=== PATIENT | female | born 1970 | race African-American/Black ===

== ENCOUNTER 2016-05-23 08:46 | Day surgery (SDC) | payer OTHER ==
[2016-05-16 10:54] LABS: HEMATOCRIT 39.2 % (36.0-47.0); HEMOGLOBIN 12.8 g/dL (12.0-15.5); HGB HCT DIFFERENCE -0.8; MEAN CORPUSCULAR HEMOGLOBIN 26.5 pg (27.0-33.4); MEAN CORPUSCULAR HGB CONC 32.7 g/dL (32.0-36.0); MEAN CORPUSCULAR VOLUME 81 fl (80-97); RED BLOOD COUNT 4.83 10^6/uL (3.72-5.28); RED CELL DISTRIBUTION WIDTH 16.1 % (11.5-14.0); WHITE BLOOD COUNT 8.7 10^3/uL (4.0-10.5)
[2016-05-16 11:20] LABS: ANION GAP 13 (5-19); BLOOD UREA NITROGEN 13 mg/dL (7-20); CALCIUM 9.5 mg/dL (8.4-10.2); CARBON DIOXIDE 24 mmol/L (22-30); CHLORIDE 106 mmol/L (98-107); CREATININE RESULT 0.98 mg/dL (0.52-1.25); GLUCOSE 95 mg/dL (75-110); POTASSIUM 4.3 mmol/L (3.6-5.0); SODIUM 142.8 mmol/L (137-145)
[~2016-05-23 08:46] MED LIST: ACETAMINOPHEN 325 MG TABLET PO PRN; BUPIVACAINE HCL 0.25 % INJ/PF (2.5 MG/1 ML) 30 ML VIAL ONE; CEFAZOLIN SODIUM 1 GM in DEXTROSE 5%-WATER 50 ML IV PRN; LACTATED RINGERS 1000 ML IV PRN; LIDOCAINE 0.5% INJ-PF (5 MG/ML) 50 ML SDV SUBCUT PRN; RINGERS SOLUTION,LACTATED 1,000 ML IV PRN
[2016-05-23] MEDS ORDERED: ROCURONIUM BROMIDE INJ 50 MG/5 ML VIAL IV ONE (11:49)
[2016-05-23] MEDS ORDERED: LIDOCAINE 2% INJ-PF (20 MG/ML) 10 ML AMPUL ONE (11:49)
[2016-05-23] MEDS ORDERED: DEXAMETHASONE SOD PHOSPHATE INJ 4 MG/1 ML VIAL ONE (11:49)
[2016-05-23] MEDS ORDERED: KETOROLAC TROMETHAMINE 60 MG/2 ML SDV ONE (11:49)
[2016-05-23] MEDS ORDERED: ONDANSETRON HCL INJ/PF 4 MG/2 ML SDV ONE (11:49)
[2016-05-23] MEDS ORDERED: SUCCINYLCHOLINE CHLORIDE INJ 200 MG/10 ML VIAL ONE (11:49)
[2016-05-23] MEDS ORDERED: PROPOFOL INJ 200 MG/20 ML VIAL IV ONE (12:28)
[2016-05-23] MEDS ORDERED: FENTANYL CITRATE INJ/PF 250 MCG/5 ML AMPULE ONE (12:28)
[2016-05-23] MEDS ORDERED: MIDAZOLAM 2 MG/2 ML INJ ONE (12:28)
[2016-05-23] MEDS ORDERED: ACETAMINOPHEN 100 ML IV ONE (12:29)
[2016-05-23] MEDS ORDERED: MEPERIDINE HCL/PF INJ 25 MG/1 ML DISP.SYRIN IV PRN (13:53)
[2016-05-23] MEDS ORDERED: FENTANYL CITRATE INJ/PF 100 MCG/2 ML AMPUL IV PRN ×3 (13:53)
[2016-05-23] MEDS ORDERED: DIPHENHYDRAMINE HCL 50 MG/ML VIAL IV PRN (13:53)
[2016-05-23] MEDS ORDERED: OXYCODONE-ACETAMINOPHEN 5-325 MG TABLET PO PRN ×4 (13:53→15:43)
[2016-05-23] MEDS ORDERED: PROMETHAZINE HCL INJ 25 MG/1 ML VIAL IV PRN ×2 (13:53)
[2016-05-23] MEDS ORDERED: MORPHINE SULFATE 10 MG/ML INJ IV PRN ×2 (13:53→15:43)
[2016-05-23] MEDS ORDERED: BUPIVACAINE INJ/PF LIPOSOME/PF 266 MG/20 ML SDV ONE (14:52)
[2016-05-23] MEDS ORDERED: MORPHINE SULFATE 10 MG/ML INJ ONE (14:58)
[2016-05-23] MEDS ORDERED: ONDANSETRON HCL INJ/PF 4 MG/2 ML SDV IV PRN (15:43)
--- NOTE | 2016-05-23 15:43 | Operative Report ---
Operative Report DATE OF SURGERY: 05/23/16 PREOPERATIVE DIAGNOSIS: Large chronic incarcerated ventral wall hernia. POSTOPERATIVE DIAGNOSIS: Same with intra-abdominal adhesions OPERATION: 1. Laparoscopic lysis of adhesions. 2.laparoscopic reduction of incarcerated large umbilical hernia. 3 primary closure of abdominal wall hernia with multiple #1 PDS sutures. 4. Intra-abdominal placement of parietex 15 cm mesh SURGEON: FABIOLA TELLO LATHE MACHINIST: XOCHILT HANKINS ANESTHESIA: GA TISSUE REMOVED OR ALTERED: Portions of hernia sac COMPLICATIONS: None ESTIMATED BLOOD LOSS: scant INTRAOPERATIVE FINDINGS: See below PROCEDURE: The patient was seen in the preoperative holding area where she was then taken to the main operating room where general anesthesia was induced. The arms were abducted, and a Gastelum catheter was inserted. Abdomen was exposed, prepped and draped sterile fashion. Surgical plan, surgical timeout were conducted. On exam significant for large incarcerated ventral wall hernia, midline, above the umbilicus. Stab was made in the left upper quadrant Veress needle was inserted the peritoneal cavity. The peritoneum was established, very's needle was removed, the 5 mm port was inserted and a 5 mm flexible scope was inserted. Under direct visualization 2 additional ports were placed, both 5 mm, one in the left lower quadrant one in the right midfield. Findings are significant for a large portion of the omentum with portion of the mid transverse colon car serrated into the fascial defect. Same mushroomlike hernia with a moderately small stalk but a much larger extra peritoneal active with incarcerated contents. A combination of blunt, electrocautery, and ligature dissection, the peritoneal lining was incised around the circumference of this chronic 24-year-old hernia. Using a combination of blunt, and counterpressure dissection, we worked methodically to completely reduce the incarcerated hernia. Once this was accomplished we were able to debride some of the hernia sac which was disposed of. We measured the fascial defect was approximately 4 cm in maximum diameter. We elected to close the fascial defect transversely with multiple [id number] # 1 PDS sutures and this was affected using the disposable suture passer. At the conclusion of the closure, we felt we had good opposition of the fascia. Photos were taken. We now brought onto the field a non- 15 cm diameter medium weight polypropylene mesh by [employer]. It was secured with sutures at the 12, 3:00, 6 , and non-o'clock positions. The mesh was rolled after moistening and brought to accident secured the mesh firmly to the anterior abdominal wall. The anterior abdominal wall through the right mid quadrant port site incision. Mesh was unrolled then using the suture tacker brought up to the anterior abdominal wall at the 12, 3, 6, and 9:00 positions. We then came back around with 2 circumferential rows of coviden staple tackers and secured the mesh to the anterior abdominal wall. This was an intraperitoneal placement of mesh. Closing photographs were taken. Check for bleeding and visceral injury and there was none. We felt the operation was complete. All ports removed, and pneumoperitoneum evacuated. Port wounds closed with 3-0 Vicryl and all incisions closed with benzoin and Steri-Strips. Bulky bolster dressing applied to the anterior abdominal wall over the hernia site to reduce the redundant skin. Abdominal binder applied. Patient tolerated procedure well, extubated and taken recovery in stable condition. The physician call center assistant, Ms. Hankins, provided assistance during this case by: Assisting and port insertion, retracting tissue, instillation of local anesthesia and closure of skin incisions.
--- NOTE | 2016-05-23 15:46 | PDOC DISCHARGE SUMMARY ---
Discharge Summary (SDC) - Discharge Final Diagnosis: Large ventral wall hernia Date of Surgery: 05/23/16 Discharge Date: 05/23/16 Condition: Good Treatment or Instructions: [facility] [address], [place] [address] Discharge Instructions: Laparoscopic Surgery 1. General Information: a. DO NOT DRIVE a car or operate dangerous machinery for 3-4 days or while taking narcotic pain pills. b. DO NOT consume alcohol, tranquilizers, sleeping medications or any non- prescribed medications for 24 hours unless approved by your doctor or as long as taking narcotic prescription medications. c. DO NOT make important decisions or sign any important papers for the first 24 hours after surgery. d. When discharged home the same day of surgery have a responsible person with you for the first night. 2. Activity Restrictions: 4 weeks. a. NO heavy lifting, straining abdominal muscles, bending over a lot, yard work, house work, or sports for [address] for 3-4 days or while taking percocet . c. It is fine to go for walks, up and down steps, ride in a car. d. Elevate your head when sleeping/resting. 3. Treatment: a. You may shower 24 hours after surgery, no baths or swimming for 2 weeks. Remove band-aids or dressings before shower but leave paper strips (steri-strips ) on the skin to fall off on their own. If still on at postoperative visit they will be removed then. b. Drainage of fluid or blood is not unusual from an incision. If occurs, you can clean with peroxide and cotton ball daily and cover with dry gauze until the wound seals. c. If a lot of bleeding occurs, you can hold pressure with a gauze or cloth over the site for 10 minutes and it will usually stop. If bleeding continues you will need to call for possible evaluation in office or emergency room. 4. Medications: a. percocet may be taken for pain as needed, one or two tablets every 4-6 hours. Stop the narcotic when able since you cannot take it and drive, and they cause constipation. You may switch to plain Tylenol, Advil or Aleve as you transition from the narcotic. Many adults find good pain relief with Advil 600- 800 mg three times a day with meals. This can cause indigestion, ulcers, and kidney problems with long-term use. b. You should resume all normal medications unless a change is specified by your doctors. c. Begin with clear liquids and may progress to your normal diet if not nauseated. No high fat, high protein foods the day of surgery. Normal diet 6. The following may occur after laparoscopic surgery: a. Shoulder or upper back ache from retained gas that should resolve in 1-2 days b. Soreness and bruising at incision sites will resolve with time. c. Scrotal swelling (labia in women) and bruising is often seen after hernia surgery. d. Sore throat e. Fatigue may last days to weeks. f. Difficulty urinating may occur and may need to come into emergency room for urinary catheter placement. 7. Notify Physician If: a. Worsening or pain not improved with pain medication b. Persistent nausea and vomiting c. Fever above 101 d. Persistent bleeding or swelling at operative site e. Unable to urinate and uncomfortable bladder 6-8 hours after surgery 8..Follow Up Care: a. Schedule a follow up appointment with your doctor for 2 weeks. In the event of any postoperative problems or questions or you may call the office during business hours or the On-Call physician evenings and weekends at [facility]. [facility] I understand the instructions for my postoperative care as described above and a copy has been given to me. Patient/Significant Other Witness Date Discharge Diet: As Tolerated Discharge Activity: Activity As Tolerated Home Care Assistance: None Needed Report the Following to Your Physician Immediately: Shortness of Breath, Increase in Pain, Fever over 101 Degrees
[2016-05-23] MEDS: FENTANYL CITRATE INJ/PF 100 MCG/2 ML AMPUL ONE ×3 (16:26→16:32)
--- NOTE | 2016-05-23 17:03 | PDOC CONSULTATION ---
Consultation Consult Date: 05/23/16 Attending physician:: FABIOLA ROBERT Consult reason:: Increased ventricular ectopy History of Present Illness Admission Date/PCP: FABIOLA ANGELES MD Patient complains of: Patient noted to have increased ventricular ectopy on monitoring. History of Present Illness: JULIO SRINIVASAN is a 45 year old female, patient was seen in the PACU unit. She was noted to have increased ventricular ectopy in the postop monitoring. The anesthesiologist called me and requested that I see the patient. He also mentioned that before surgery patient was also noted to have increased ventricular ectopy. On questioning patient denied any chest pain, shortness of breath, palpitations, syncope, near syncope. She denied ever having had heart problems, strokes or mini strokes. Patient also denied having diabetes, hypertension or any other significant cardiac risk factors. Patient denied any family history of premature coronary artery disease or sudden cardiac in immediate family members. Past Medical History Cardiac Medical History: Denies: Coronary Artery Disease, Myocardial Infarction, Hypertension Pulmonary Medical History: Denies: Asthma, Bronchitis, Chronic Obstructive Pulmonary Disease (COPD), Pneumonia Neurological Medical History: Denies: Seizures Musculoskeltal Medical History: Denies: Arthritis Hematology: Denies: Anemia Past Surgical History Past Surgical History: Reports: Other - Status post ventral hernia repair just today. Social History Information Source: Patient Smoking Status: Former Smoker Family History Family History: Reviewed & Not Pertinent Parental Family History Reviewed: Yes Children Family History Reviewed: Yes Sibling(s) Family History Reviewed.: Yes - Negative for premature coronary artery disease or sudden cardiac in the family amongst first degree relatives. Medication/Allergy Home Medications: Oxycodone HCl/Acetaminophen [Percocet 5-325 mg Tablet] 1 tab PO ASDIR PRN #25 tab 05/23/16 Allergies/Adverse Reactions: No Known Allergies Allergy (Verified 05/16/16 08:49) Review of Systems Review of Systems: Please see history of present illness and past medical history as wall. Constitutional: No fever or chills reported. Head : No recent chronic headaches, recent head injury. Eyes: No recent eye pain, diplopia, redness, discharge, acute visual changes. Ears: No recent chronic ear pain, acute hearing loss, ear discharge. Oral cavity: No recent ulcerations, bleeding, oral cavity discomfort. Neck: No recent acute neck pain reported. Hematologic: No recent easy bruising or bleeding or hematologic malignancy reported. Lymphatic: No recent lymphatic malignancy, chronic lymphadenopathy reported yet Cardiovascular system review: See history of present illness. Respiratory system review: No recent chronic cough, hemoptysis, blood clots in the lungs reported. Mild Shortness of breath on exertion Gastrointestinal system review: Recent abdominal pain, but no hematemesis, melena, recent change in bowel habits. Genitourinary system review: No recent acute or chronic hematuria, flank pain, UTI etc. reported. Skin system review: Negative for any recent abnormal bruising, no rash, no pruritus reported. Neurologic: No prior history of strokes, mini strokes, seizure disorder. Psychologic: No history of major psychosis or depression reported. Musculoskeletal: Minor aches and pains reported. No acute joint swelling reported. Endocrine: No recent polyuria, polydipsia, recent heat or cold intolerance. Physical Exam Vital Signs: Temp Pulse Resp BP Pulse Ox 98.2 F 76 18 125/65 100 05/23/16 15:37 05/23/16 16:22 05/23/16 16:22 05/23/16 16:22 05/23/16 16:22 Intake & Output 05/22/16 05/23/16 05/24/16 06:59 06:59 06:59 Intake Total 1550 Output Total 370 Balance 1180 Weight 90.72 kg Exam: GENERAL: well-nourished and in no acute distress. Alert and oriented x3 HEAD: Atraumatic, normocephalic. EYES: Pupils equal round and reactive to light, extraocular movements intact, sclera anicteric, conjunctiva are normal. ENT: TMs normal, nares patent, oropharynx clear without exudates. Moist mucous membranes. No oral ulcerations or bleeding gums noted NECK: supple without lymphadenopathy. Trachea is central. No cervical or axillary lymphadenopathy noted. Carotids are 2+, JVD WNL LUNGS: Respiration seems nonlabored, no significant accessory muscle action noted. Breath sounds clear to auscultation bilaterally and equal. No wheezes rales or rhonchi. No significant dullness noted on percussion. CHEST: Palpation of the chest wall shows no significant chest wall tenderness or abnormalities. HEART: [place] LOCKSTITCH SHOULDER JOINER, No PSH, 1/6 SANTOS aortic area, 1/6 chavez systolic murmur mitral area, no rubs, no gallops. ABDOMEN: Soft, mild tenderness appreciated at surgical site, normoactive bowel sounds. No guarding, no rebound. No rigidity noted . No masses appreciated. EXTREMITIES: Pedal pulses are 1-2+, no calf tenderness noted. No clubbing or cyanosis.trace to 1+ pedal edema noted NEUROLOGICAL: Focused neurological exam showed no significant neurologic deficit. Normal speech, no focal weakness appreciated. PSYCH: Normal mood, normal affect. Judgment and insight within normal limits. SKIN: No significant ecchymosis, rash, ulcerations or signs of pruritus noted. MUSCULOSKELETAL EXAM: No significant joint swelling noted. Results Laboratory Results: 05/16/16 09:23 05/16/16 09:23 EKG Comments: Sinus rhythm, increased ventricular ectopy but no acute ST-T wave changes. Impressions: Chest X-Ray 05/23/16 08:49 IMPRESSION: NO ACUTE RADIOGRAPHIC FINDING IN THE CHEST. Assessment & Plan - Diagnosis (1) Cardiac dysrhythmia, unspecified Qualifiers: Premature depolarization type: ventricular Is this a current diagnosis for this admission?: YesPlan: Patient noted to have frequent ventricular ectopy but patient asymptomatic and without any prior cardiac history. At this point feel that patient is safe for discharge with follow-up either tomorrow or day after in my office. Would recommend patient have a echocardiogram, a event or Holter monitor and a stress test. This was explained to the patient. She is agreeable. We will consider beta simone therapy if this persist. At this point feel that increased when to call or ectopy could be effect of anesthesia on the heart and is likely to improve. (2) status post abdominal hernia surgery Is this a current diagnosis for this admission?: YesPlan: Patient doing reasonably well postop without any immediate complications being noted. - Time Time Spent: 30 to 50 Minutes - CODE STATUS was discussed, patient remains full code. Surrogate decision-maker ration's parents. Multiple medical problems were addressed.More than 50% of the time spent coordinating care, discussing management plans with involved caregivers. Management plans discussed with involved personnels. Medical decision making was of moderate complexity.
[2016-05-23 18:36] VITALS: BP 129/81
--- NOTE | 2016-05-24 09:43 | EKG REPORT ---
SEVERITY:- ABNORMAL ECG - SINUS RHYTHM VENTRICULAR TRIGEMINY BORDERLINE RIGHT AXIS DEVIATION : Confirmed by: Leda Jenkins MD 24-May-2016 09:41:19
== END 2016-05-23 18:29 | disposition home or self-care (01) ==
LOC: OROUT 08:46
PROVIDERS: ATTEND Surgery
PROC: 0WUF0JZ Supplement Abdominal Wall with Synthetic Substitute, Open Approach (ICD-10-PCS; principal; 2016-05-23 11:00)
DX: K43.6 Other and unspecified ventral hernia with obstruction, without gangrene (principal); K66.0 Peritoneal adhesions (postprocedural) (postinfection); I49.3 Ventricular premature depolarization; Z87.891 Personal history of nicotine dependence
CPT/HCPCS: 36415; 85027; 81025; 80048; 71010; 93005; 93010; 49561; 49568; C1781; J2250; J0690; J3490 ×2; J1100; J1885; J3010 ×2; J2270; J0330; J2405; J2704; J0131; C9290; 752

== ENCOUNTER → 2016-06-22 | Outpatient (CLI) | payer OTHER | LOC: SP 15:44 | PROVIDERS: ATTEND Surgery | DX: I82.409 Acute embolism and thrombosis of unspecified deep veins of unspecified lower extremity (principal) | CPT/HCPCS: 93971 ==

== ENCOUNTER 2017-05-28 07:32 | Emergency (ER) | payer OTHER ==
--- NOTE | 2017-05-28 08:26 | ER Document Report ---
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 Hx of this in the past once. No fever. No hx gout. Associated Symptoms: None Exacerbated by: Movement Relieved by: Denies Similar symptoms previously: Yes Recently seen / treated by doctor: No - ROS ROS below otherwise negative: Yes Systems Reviewed and Negative: Yes All other systems reviewed and negative - REPRODUCTIVE Reproductive: DENIES: : - MUSCULOSKELETAL Musculoskeletal: REPORTS: Extremity pain - left knee Past Medical History - General Information source: Patient - Social History Smoking Status: Never Smoker Chew tobacco use (# tins/day): No Frequency of alcohol use: None Drug Abuse: None Lives with: Family Family History: Reviewed & Not Pertinent Patient has suicidal ideation: No Patient has homicidal ideation: No Renal/ Medical History: Denies: Hx Peritoneal Dialysis Surgical Hx: Negative Past Surgical History: Reports: Other - Status post ventral hernia repair just today. - Immunizations Hx Diphtheria, Pertussis, Tetanus Vaccination: Yes Vertical Provider Document - CONSTITUTIONAL Agree With Documented VS: Yes Exam Limitations: No Limitations General Appearance: No Apparent Distress - INFECTION CONTROL TRAVEL OUTSIDE OF THE [place] IN LAST 30 DAYS: No - HEENT HEENT: Normocephalic - NECK Neck: Supple - RESPIRATORY O2 Sat by Pulse Oximetry: 99 - MUSCULOSKELETAL/EXTREMETIES Musculoskeletal/Extremeties: Tender, Edema - warm left knee, suspect effusion, not red Notes: increased pain with flexion - NEURO Level of Consciousness: Awake, Alert Motor/Sensory: No Motor Deficit, No Sensory Deficit Notes: 2+ left DP - DERM Integumentary: Warm, Dry Course - Re-evaluation Re-evalutation: 05/28/17 xray mild arthritis per rad. Pt does not want crutches offered. 05/29/17 21:45 - Vital Signs Vital signs: Temp Pulse Resp BP Pulse Ox 98.1 F 92 18 146/97 H 99 05/28/17 07:37 05/28/17 07:37 05/28/17 07:37 05/28/17 07:37 05/28/17 07:37 Discharge - Discharge Clinical Impression: left knee joint acute inflammation Condition: Good Disposition: HOME, SELF-CARE Instructions: Anti-Inflammatory Medication ([facility]), Elevation & Warmth ([facility]), Oral Narcotic Medication ([facility]) Additional Instructions: elevate indoncin for the inflammtion hydrocodone for the pain today to er if increased swelling, heat, red, fever Prescriptions: Hydrocodone Bit/Acetaminophen [Hydrocodon-Acetaminophen 5-325] 1 each PO Q4HP PRN #10 tablet PRN Reason: Indomethacin [Indocin 50 Mg Capsule] 50 mg PO TID #20 capsule Forms: Return to Work Referrals: LELO TAVERAS MD [ACTIVE STAFF] - Follow up as needed
[2017-05-28] MEDS ORDERED: ONDANSETRON 4 MG TAB.RAPDIS PO ONE (09:14)
[2017-05-28] MEDS ORDERED: INDOMETHACIN 50 MG CAPSULE PO ONE (09:14)
--- NOTE | 2017-05-28 09:32 | RADIOLOGY REPORT (SQ) ---
EXAM DESCRIPTION: KNEE LEFT 4 VIEW COMPLETED DATE/TIME: 05/28/2017 9:11 am REASON FOR STUDY: pain and swelling left knee COMPARISON: None. NUMBER OF VIEWS: Four views. TECHNIQUE: AP, lateral, and both oblique radiographic images acquired of the left knee. LIMITATIONS: None. FINDINGS: MINERALIZATION: Normal. BONES: Minimal peaking of intercondylar eminence. JOINT: No effusion. SOFT TISSUES: No soft tissue swelling. No radio-opaque foreign body. OTHER: No other significant finding. IMPRESSION: Minimal degenerative arthritis left knee. TECHNICAL DOCUMENTATION: JOB ID: [id number] [id number] 2010 [employer]- All Rights Reserved
[2017-05-28 09:37] VITALS: BP 142/90
== END 2017-05-28 09:37 | disposition home or self-care (01) ==
LOC: ER 07:32
DX: M17.12 Unilateral primary osteoarthritis, left knee (principal); M25.562 Pain in left knee
CPT/HCPCS: 99283; 73562; S0119; J3490

== ENCOUNTER 2017-10-25 13:32 | Emergency (ER) | payer OTHER ==
[2017-10-25 13:38] VITALS: BP 154/81
--- NOTE | 2017-10-25 13:50 | ER Document Report ---
HPI - HPI Patient complains to provider of: planter left foot pain Onset: This morning Pain Level: 5 Context: 47 yo female c/o left foot pain when she stepped out of bed this morning. Hurts to wal. No injury. Has been tested for gout in past for outher jont pain and the uric acid is negative. Some ankle swelling. No fever. Associated Symptoms: None Exacerbated by: Walking Relieved by: Denies Similar symptoms previously: Yes - in other joints Recently seen / treated by doctor: No - ROS ROS below otherwise negative: Yes Systems Reviewed and Negative: Yes All other systems reviewed and negative - REPRODUCTIVE Reproductive: DENIES: : - MUSCULOSKELETAL Musculoskeletal: REPORTS: Extremity pain Past Medical History - General Information source: Patient - Social History Smoking Status: Current Every Day Smoker Frequency of alcohol use: None Drug Abuse: None Lives with: Family Family History: Reviewed & Not Pertinent Patient has suicidal ideation: No Patient has homicidal ideation: No Renal/ Medical History: Denies: Hx Peritoneal Dialysis Surgical Hx: Negative Past Surgical History: Reports: Other - Status post ventral hernia repair just today. - Immunizations Hx Diphtheria, Pertussis, Tetanus Vaccination: Yes Vertical Provider Document - CONSTITUTIONAL Agree With Documented VS: Yes Exam Limitations: No Limitations General Appearance: No Apparent Distress - INFECTION CONTROL TRAVEL OUTSIDE OF THE [place] IN LAST 30 DAYS: No - HEENT HEENT: Normocephalic - NECK Neck: Supple - BACK Back: CVA Tenderness-Left - plantar left foot at the fascia adjacent to heel - MUSCULOSKELETAL/EXTREMETIES Musculoskeletal/Extremeties: MAEW, FROM, Tender - NEURO Motor/Sensory: No Motor Deficit, No Sensory Deficit - DERM Integumentary: No Rash Course - Re-evaluation Re-evalutation: 10/25/17 15:00 Radiologist read soft tissue swelling without evidence of fracture, small calcaneal spurs, mild degenerative changes involving the first MTP joint. By physical exam she has plantar fasciitis with ankle swelling. She has been tested for uric acid due to joint pain in the past. This pain is tender along the plantar foot heel and not with joint movement. I will treat for inflammation and use Costa wrap and crutches for comfort. Will recommend that she follow-up with a industrial automation specialist. - Vital Signs Vital signs: Temp Pulse Resp BP Pulse Ox 98.1 F 110 H 16 154/81 H 98 10/25/17 13:37 10/25/17 13:37 10/25/17 13:37 10/25/17 13:37 10/25/17 13:37 Discharge - Discharge Clinical Impression: Pain in left ankle and joints of left foot Condition: Good Disposition: HOME, SELF-CARE Instructions: Costa Wrap ([facility]), Arthritis ([facility]), Use of Crutches ([facility]), Ibuprofen (General) ([facility]), Plantar Fasciitis or Heel Spur ([facility]) Additional Instructions: cool compress See the industrial automation specialist Ashley on a regular basis with food Prescription for comfort Crutches for several days Prescriptions: Ibuprofen [Motrin 800 mg Tablet] 800 mg PO Q8HP PRN #30 tablet PRN Reason: Forms: Return to Work Referrals: MARTINA FERRARA DPM [ACTIVE STAFF] - Follow up as needed
[2017-10-25] MEDS ORDERED: ACETAMINOPHEN 325 MG TABLET PO ONE (13:56)
[2017-10-25] MEDS ORDERED: IBUPROFEN 800 MG TABLET PO ONE (13:56)
--- NOTE | 2017-10-25 14:46 | RADIOLOGY REPORT (SQ) ---
EXAM DESCRIPTION: FOOT LEFT COMPLETE; ANKLE LEFT COMPLETE COMPLETED DATE/TIME: 10/25/2017 2:22 pm REASON FOR STUDY: pain COMPARISON: 10/22/2015 NUMBER OF VIEWS: Six views. TECHNIQUE: AP, lateral and oblique radiographic images acquired of the left foot with AP, lateral o blique views of the left ankle. LIMITATIONS: None. FINDINGS: MINERALIZATION: Normal. BONES: No acute fracture or dislocation. No worrisome bone lesions. Smile calcaneal spurs at the in sertion of the Achilles and plantar aponeurosis. Calcification in the Achilles tendon. JOINTS: No effusions. Mild hallux valgus with mild degenerative changes involving 1st metatarsophala ngeal joint. SOFT TISSUES: Relatively diffuse soft tissue swelling. OTHER: No other significant finding. IMPRESSION: 1. Soft tissue swelling without evidence fracture. 2. Small calcaneal spurs. 3. Mild degenerative changes involving 1st metatarsophalangeal joint. TECHNICAL DOCUMENTATION: JOB ID: [id number] [employer]- All Rights Reserved Reading location - IP/workstation name: [email or web address]
--- NOTE | 2017-10-25 14:46 | RADIOLOGY REPORT (SQ) ---
EXAM DESCRIPTION: FOOT LEFT COMPLETE; ANKLE LEFT COMPLETE COMPLETED DATE/TIME: 10/25/2017 2:22 pm REASON FOR STUDY: pain COMPARISON: 10/22/2015 NUMBER OF VIEWS: Six views. TECHNIQUE: AP, lateral and oblique radiographic images acquired of the left foot with AP, lateral o blique views of the left ankle. LIMITATIONS: None. FINDINGS: MINERALIZATION: Normal. BONES: No acute fracture or dislocation. No worrisome bone lesions. Smile calcaneal spurs at the in sertion of the Achilles and plantar aponeurosis. Calcification in the Achilles tendon. JOINTS: No effusions. Mild hallux valgus with mild degenerative changes involving 1st metatarsophala ngeal joint. SOFT TISSUES: Relatively diffuse soft tissue swelling. OTHER: No other significant finding. IMPRESSION: 1. Soft tissue swelling without evidence fracture. 2. Small calcaneal spurs. 3. Mild degenerative changes involving 1st metatarsophalangeal joint. TECHNICAL DOCUMENTATION: JOB ID: [id number] 1976 [employer]- All Rights Reserved Reading location - IP/workstation name: [email or web address]
== END 2017-10-25 15:11 | disposition home or self-care (01) ==
LOC: ER 13:32
DX: M25.572 Pain in left ankle and joints of left foot (principal); M79.672 Pain in left foot; F17.200 Nicotine dependence, unspecified, uncomplicated
CPT/HCPCS: 99283

== ENCOUNTER 2020-04-04 06:32 | Emergency (ER) | payer OTHER ==
--- NOTE | 2020-04-04 07:28 | EKG REPORT ---
SEVERITY:- ABNORMAL ECG - SINUS RHYTHM MULTIPLE VENTRICULAR PREMATURE COMPLEXES PROBABLE LEFT ATRIAL ABNORMALITY LOW VOLTAGE IN FRONTAL LEADS BORDERLINE T ABNORMALITIES, ANT-LAT LEADS : Confirmed by: Amrit Haley MD 04-Apr-2020 07:28:19
--- NOTE | 2020-04-04 08:57 | ER Document Report ---
ED General - General Chief Complaint: Cough Stated Complaint: WHEEZING Time Seen by Provider: 04/04/20 08:13 [facility] Care [facility]: [facility] [Provider Group] - Follow up in 3-5 days (for primary care follow up) TRAVEL OUTSIDE OF THE [place] IN LAST 30 DAYS: No - HPI Notes: 49-year-old female to the emergency department with complaints of dry cough, wheezing, shortness of breath, and difficulty laying flat since Saturday (two days ago). She states that she has been trying to cough up sputum but has not been successful. She states she is having to sleep sitting up on multiple pillows. She states when she lays flat she feels very short of breath and feels like she is wheezing. She states the other night she woke up in the middle of the night acutely short of breath feeling like she wanted to open a window. She denies any fevers or chills. She denies body aches, sore throat, loss of taste or smell, nausea, vomiting, diarrhea, leg swelling, recent travel. She states that she has not been around anybody is sick. 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 She has not recently been tested for COVID-19. The patient was evaluated during the global COVID 19 pandemic, and that diagnosis was suspected/considered upon their initial presentation. Their evaluation, treatment, and testing was consistent with current guidelines for patients who present with complaints or symptoms that may be related to COVID-19. She has no past medical history for asthma, congestive heart failure, hypertension, PE. - Related Data Allergies/Adverse Reactions: No Known Allergies Allergy (Verified 10/25/17 13:33) Past Medical History - General Information source: Patient - Social History Smoking Status: Never Smoker Frequency of alcohol use: None Drug Abuse: None Family History: Reviewed & Not Pertinent - Past Medical History Cardiac Medical History: Denies: Hx Coronary Artery Disease, Hx Heart Attack, Hx Hypertension Pulmonary Medical History: Denies: Hx Asthma, Hx Bronchitis, Hx COPD, Hx Pneumonia Neurological Medical History: Denies: Hx Cerebrovascular Accident, Hx Seizures Renal/ Medical History: Denies: Hx Peritoneal Dialysis Musculoskeletal Medical History: Denies Hx Arthritis Past Surgical History: Reports: Other - Status post ventral hernia repair just today. - Immunizations Hx Diphtheria, Pertussis, Tetanus Vaccination: Yes Review of Systems - Review of Systems Constitutional: denies: Chills, Fever EENT: No symptoms reported Cardiovascular: denies: Chest pain, Palpitations, Heart racing, Syncope, Dizziness, Lightheaded Respiratory: Cough, Short of breath, Wheezing Gastrointestinal: denies: Abdominal pain, Diarrhea, Nausea, Vomiting Genitourinary: denies: Burning, Dysuria, Frequency, Flank pain Female Genitourinary: No symptoms reported Musculoskeletal: No symptoms reported. denies: Muscle pain, Muscle stiffness, Neck pain Skin: No symptoms reported Hematologic/Lymphatic: No symptoms reported Neurological/Psychological: No symptoms reported -: Yes All other systems reviewed and negative Physical Exam - Vital signs Vitals: Temp Pulse Resp BP Pulse Ox 98.2 F 81 18 136/87 H 98 04/04/20 08:21 04/04/20 08:21 04/04/20 08:21 04/04/20 08:21 04/04/20 08:21 Interpretation: Normal - General General appearance: Appears well, Alert In distress: None - HEENT Head: Normocephalic, Atraumatic Eyes: Normal Pupils: PERRL Neck: Normal, Supple. No: Lymphadenopathy - Respiratory Respiratory status: No respiratory distress Chest status: Nontender Breath sounds: Normal, Nonproductive cough - slight non productive cough.. No: Rales, Rhonchi, Wheezing Chest palpation: Normal - Cardiovascular Rhythm: Regular Heart sounds: Normal auscultation Murmur: No Notes: No pitting edema to bilateral lower extremities - Abdominal Inspection: Normal Distension: No distension Bowel sounds: Normal Tenderness: Nontender Organomegaly: No organomegaly - Back Back: Normal, Nontender - Extremities General lower extremity: Normal inspection, Nontender, Normal color, Normal ROM, Normal temperature, Normal weight bearing. No: Ron's sign - Neurological Neuro grossly intact: Yes Cognition: Normal Orientation: AAOx4 [place] Coma Scale Eye Opening: Spontaneous [place] Coma Scale Verbal: Oriented Ger Coma Scale Motor: Obeys Commands [place] Coma Scale Total: 15 Speech: Normal Cranial nerves: Normal Cerebellar coordination: Normal Motor strength normal: LUE, RUE, LLE, RLE Additional motor exam normals: Equal clarification operator Sensory: Normal - Psychological Associated symptoms: Normal affect, Normal mood - Skin Skin Temperature: Warm Skin Moisture: Dry Skin Color: Normal Course - Vital Signs Vital signs: Temp Pulse Resp BP Pulse Ox 98.5 F 77 20 149/85 H 98 04/04/20 10:49 04/04/20 10:49 04/04/20 10:49 04/04/20 10:49 04/04/20 10:49 - Laboratory Result Diagrams: 04/04/20 08:56 04/04/20 08:56 Laboratory results interpreted by me: 04/04/20 04/04/20 04/04/20 08:56 08:56 08:56 RDW 15.1 H BUN 6 L NT-Pro-B Natriuret Pep 580 H - EKG Interpretation by Me Additional EKG results interpreted by me: 04/04/20 08:55 Rate: 77 Rhythm: Sinus Interpretation: No STEMI, multiple PVCs, T wave inversion in aVL and V2 which is unchanged from prior comparison in May 2016 Discharge - Discharge Clinical Impression: Cough, Wheezing Condition: Stable Disposition: HOME, SELF-CARE Instructions: COVID-19 Guidance for Persons Under Investigation Additional Instructions: Use albuterol inhaler as directed. Return if worsening symptoms such as worsening shortness of breath, chest pain, passing out, any other concerns. You have been tested for COVID-19. You must quarantine for the next week until you know results. Results are typically available in 3 to 5 days. We will call you with the results. As a person under investigation for COVID-19, [facility], division of public health advises you to adhere to the following guidance until your test results are reported to you. If your test result is positive, you will receive additional information from your [facility] ider and your local health department at that time. Remain at home until you are cleared by the healthcare provider public health authorities. Keep a log of visitors to your home and notify any visitors to your home of your isolation status. If you plan to move to a new address or leave the country, notify the local health department and your County. Call your doctor or seek care if you have an urgent medical need. Before seeking medical care, call ahead to get instructions from the provider before arriving at the medical office, clinic, or hospital. Notify them that you are being tested for the virus that causes COVID-19 so that arrangements can be made, as necessary, to prevent transmission to others in the healthcare setting. Next, notify the local health department and your County. If a medical emergency arises and you need to call 911, informed the first responders that you are being tested for the virus that causes COVID-19. Next, notified the local health department and your County. Prescriptions: Benzonatate [Tessalon Perles 100 mg Capsule] 100 mg PO Q8HP PRN #40 capsule PRN Reason: Albuterol Sulfate [Proair HFA Inhalation Aerosol 8.5 gm MDI] 2 puff IH Q4H PRN #1 mdi PRN Reason: Forms: Return to Work Referrals: [facility] [Provider Group] - Follow up in 3-5 days (for primary care follow up)
--- NOTE | 2020-04-04 09:13 | RADIOLOGY REPORT (SQ) ---
EXAM DESCRIPTION: CHEST SINGLE VIEW IMAGES COMPLETED DATE/TIME: 04/04/2020 8:59 am REASON FOR STUDY: SOB, wheezing, difficulty laying flat COMPARISON: 05/23/2016 EXAM PARAMETERS: NUMBER OF VIEWS: One view. TECHNIQUE: Single frontal radiographic view of the chest acquired. RADIATION DOSE: NA LIMITATIONS: None. FINDINGS: LUNGS AND PLEURA: No opacities, masses or pneumothorax. No pleural effusion. MEDIASTINUM AND HILAR STRUCTURES: No masses. Contour normal. HEART AND VASCULAR STRUCTURES: Heart normal in size. Normal vasculature. BONES: No acute findings. HARDWARE: None in the chest. OTHER: No other significant finding. IMPRESSION: NO ACUTE RADIOGRAPHIC FINDING IN THE CHEST. TECHNICAL DOCUMENTATION: JOB ID: [id number] 2010 [employer]- All Rights Reserved Reading location - IP/workstation name: [email or web address]
[2020-04-04 09:19] LABS: ABSOLUTE BASOPHILS # (AUTO) 0.1 10^3/uL (0.0-0.2); ABSOLUTE EOSINOPHILS # (AUTO) 0.5 10^3/uL (0.0-0.6); ABSOLUTE MONOCYTES (AUTO) 0.5 10^3/uL (0.1-1.4); ABSOLUTE NEUT (AUTO) 5.7 10^3/uL (1.7-8.2); BASOPHILS % (AUTO) 1.2 % (0-2); EOSINOPHILS % (AUTO) 5.8 % (0-6); HEMATOCRIT 40.3 % (36.0-47.0); HEMOGLOBIN 13.5 g/dL (12.0-15.5); LYMPHOCYTES % (AUTO) 22.7 % (13-45); MEAN CORPUSCULAR HEMOGLOBIN 28.3 pg (27.0-33.4); MEAN CORPUSCULAR HGB CONC 33.5 g/dL (32.0-36.0); MEAN CORPUSCULAR VOLUME 85 fl (80-97); MONOCYTES % (AUTO) 5.5 % (3-13); PLATELET COUNT 231 10^3/uL (150-450); RED BLOOD COUNT 4.77 10^6/uL (3.72-5.28); RED CELL DISTRIBUTION WIDTH 15.1 % (11.5-14.0); SEGMENTED NEUTROPHILS % (AUTO) 64.8 % (42-78); TOTAL CELLS COUNTED % (AUTO) 100 %; WHITE BLOOD COUNT 8.9 10^3/uL (4.0-10.5)
[2020-04-04 09:34] LABS: ALBUMIN 4.1 g/dL (3.5-5.0); ALKALINE PHOSPHATASE 69 U/L (38-126); ANION GAP 7 (5-19); ASPARTATE AMINO TRANSFERASE 25 U/L (14-36); BILIRUBIN,DIRECT 0.2 mg/dL (0.0-0.4); BILIRUBIN,TOTAL 0.4 mg/dL (0.2-1.3); BLOOD UREA NITROGEN 6 mg/dL (7-20); CALCIUM 9.5 mg/dL (8.4-10.2); CARBON DIOXIDE 29 mmol/L (22-30); CHLORIDE 103 mmol/L (98-107); GLUCOSE 101 mg/dL (75-110); POTASSIUM 4.1 mmol/L (3.6-5.0); TOTAL PROTEIN 7.2 g/dL (6.3-8.2)
[2020-04-04] MEDS ORDERED: ALBUTEROL SULFATE 0.083% NEB 2.5 MG/3 ML AMPUL NEB ONE (09:35)
[2020-04-04] MEDS ORDERED: DEXAMETHASONE CONC 1 MG/ML SOLN PO ONE (09:35)
[2020-04-04 09:46] LABS: NT PRO BNP 580 pg/mL (<125)
[2020-04-04 09:47] LABS: TROPONIN I < 0.012 ng/mL
[2020-04-04 10:50] VITALS: BP 149/85
== END 2020-04-04 10:53 | disposition home or self-care (01) ==
LOC: ER 06:32
DX: R05 Cough (principal); R06.2 Wheezing; R06.02 Shortness of breath; Z20.828 Contact with and (suspected) exposure to other viral communicable diseases
CPT/HCPCS: 93005; 94640; 99285; 36415; 83735; 85025; 87635; 80053; 84484; 85379; 83880; 71045; 93010; J7613; J8540; C9803

== ENCOUNTER 2020-04-14 05:38 | Emergency (ER) | payer OTHER ==
[2020-04-14] MEDS ORDERED: IPRATROPIUM/ALBUTEROL 0.5-2.5 MG/3 ML AMPUL NEB ONE (06:27)
[2020-04-14 06:49] LABS: ABSOLUTE BASOPHILS # (AUTO) 0.1 10^3/uL (0.0-0.2); ABSOLUTE LYMPHOCYTES (AUTO) 1.9 10^3/uL (0.5-4.7); ABSOLUTE MONOCYTES (AUTO) 0.7 10^3/uL (0.1-1.4); ABSOLUTE NEUT (AUTO) 5.6 10^3/uL (1.7-8.2); BASOPHILS % (AUTO) 0.9 % (0-2); EOSINOPHILS % (AUTO) 10.6 % (0-6); HEMATOCRIT 45.5 % (36.0-47.0); HEMOGLOBIN 15.3 g/dL (12.0-15.5); LYMPHOCYTES % (AUTO) 20.9 % (13-45); MEAN CORPUSCULAR HEMOGLOBIN 28.3 pg (27.0-33.4); MEAN CORPUSCULAR HGB CONC 33.6 g/dL (32.0-36.0); MEAN CORPUSCULAR VOLUME 84 fl (80-97); MONOCYTES % (AUTO) 7.6 % (3-13); PLATELET COUNT 276 10^3/uL (150-450); RED BLOOD COUNT 5.41 10^6/uL (3.72-5.28); RED CELL DISTRIBUTION WIDTH 15.1 % (11.5-14.0); TOTAL CELLS COUNTED % (AUTO) 100 %; WHITE BLOOD COUNT 9.3 10^3/uL (4.0-10.5)
[2020-04-14 07:07] LABS: ALBUMIN 4.5 g/dL (3.5-5.0); ANION GAP 6 (5-19); ASPARTATE AMINO TRANSFERASE 28 U/L (14-36); BLOOD UREA NITROGEN 7 mg/dL (7-20); CALCIUM 9.9 mg/dL (8.4-10.2); CARBON DIOXIDE 27 mmol/L (22-30); CHLORIDE 104 mmol/L (98-107); GLUCOSE 119 mg/dL (75-110); NT PRO BNP 48 pg/mL (<125); TROPONIN I < 0.012 ng/mL
[2020-04-14 07:08] LABS: ALKALINE PHOSPHATASE 76 U/L (38-126); BILIRUBIN,DIRECT 0.1 mg/dL (0.0-0.4); BILIRUBIN,TOTAL 0.7 mg/dL (0.2-1.3); TOTAL PROTEIN 8.2 g/dL (6.3-8.2)
--- NOTE | 2020-04-14 08:21 | RADIOLOGY REPORT (SQ) ---
EXAM DESCRIPTION: CTA CHEST IMAGES COMPLETED DATE/TIME: 04/14/2020 6:56 am REASON FOR STUDY: sob. CREAT 0.79 04/04/20 COMPARISON: 07/31/2019 TECHNIQUE: CT scan of the chest performed using helical scanning technique with dynamic intravenous contrast injection. Images reviewed with lung, soft tissue and bone windows. Reconstructed coronal and sagittal MPR images reviewed. Additional 3 dimensional post-processing performed to develop Maximal Intensity Projection images (GA P). All images stored on PACS. All CT scanners at this facility use dose modulation, iterative reconstruction, and/or weight based d osing when appropriate to reduce radiation dose to as low as reasonably achievable (ALARA). [facility]: Dose Right [facility]: CareDose [facility]: Dose Right [facility]: Teradose 4D [facility]: NowPublic CONTRAST TYPE AND DOSE: contrast/concentration: Isovue 350.00 mmol/ml; Total Contrast Delivered: 75. 0 ml; Total Saline Delivered: 40.0 ml Contrast bolus optimized for the pulmonary arteries. Not diagnostic for the aorta. RENAL FUNCTION: Not provided on scanned paperwork. RADIATION DOSE: CT Rad equipment meets quality standard of care and radiation dose reduction techniq ues were employed. CTDIvol: 21.2 mGy. DLP: 731 mGy-cm. . LIMITATIONS: None. FINDINGS: LUNGS AND PLEURA: No masses, infiltrates, or pneumothorax. No pleural effusions or pleura l calcifications. AORTA AND GREAT VESSELS: No aneurysm. Contrast bolus not optimized for the aorta. HEART: No pericardial effusion. No significant coronary artery calcifications. PULMONARY ARTERIES: No emboli visualized in the main pulmonary arteries or the segmental branches. HILAR AND MEDIASTINAL STRUCTURES: No identified masses or abnormal nodes. HARDWARE: None in the chest. UPPER ABDOMEN: No significant findings. Limited exam. THYROID AND OTHER SOFT TISSUES: No masses. No adenopathy. BONES: No acute or significant finding. 3D MIPS: Confirm above findings. OTHER: No other significant finding. IMPRESSION: NORMAL CTA OF THE CHEST. NO PULMONARY EMBOLI. COMMENT: Quality ID # [id number]: Final reports with documentation of one or more dose reduction techniques (e.g., Automated exposure control, adjustment of the mA and/or kV according to patient size, use of iterative reconstruction technique) TECHNICAL DOCUMENTATION: JOB ID: [id number] 2010 [employer]- All Rights Reserved Reading location - IP/workstation name: [email or web address]
--- NOTE | 2020-04-14 08:36 | ER Document Report ---
ED General - General Chief Complaint: Shortness Of Breath Stated Complaint: COUGH Time Seen by Provider: 04/14/20 06:11 Mode of Arrival: Ambulatory Information source: Patient TRAVEL OUTSIDE OF THE [place] IN LAST 30 DAYS: No - HPI Notes: Patient presents complaint of shortness of breath. She states that she woke up this morning feeling short of breath. She had a similar visit several days ago. She states she has been noticing that the shortness of breath seems to be worse when she lies flat or exert herself. She is also been "wheezing". She states she has been trying the inhaler at home but has not had significant relief. She denies previous episodes of similar problems. She denies any history of lung disease. She denies being a current smoker. No history of heart disease. She denies any significant pain. The shortness of breath has been moderate. It is better now on arrival. No vomiting. No fevers chills or sweats. She recently had a negative Covid test and has had no known exposures to the Covid virus. - Related Data Allergies/Adverse Reactions: No Known Allergies Allergy (Verified 10/25/17 13:33) Home Medications: albuterol inhaler, tessalon perarls Past Medical History - General Information source: Patient - Social History Smoking Status: Former Smoker Frequency of alcohol use: None Drug Abuse: None Family History: Reviewed & Not Pertinent - Past Medical History Cardiac Medical History: Denies: Hx Coronary Artery Disease, Hx Heart Attack, Hx Hypertension Pulmonary Medical History: Denies: Hx Asthma, Hx Bronchitis, Hx COPD, Hx Pneumonia Neurological Medical History: Denies: Hx Cerebrovascular Accident, Hx Seizures Renal/ Medical History: Denies: Hx Peritoneal Dialysis Musculoskeletal Medical History: Denies Hx Arthritis Past Surgical History: Reports: Other - Status post ventral hernia repair just today. - Immunizations Hx Diphtheria, Pertussis, Tetanus Vaccination: Yes Review of Systems - Review of Systems Constitutional: denies: Chills, Fever Cardiovascular: denies: Chest pain, Palpitations Respiratory: Cough, Short of breath -: Yes All other systems reviewed and negative Physical Exam - Vital signs Vitals: Temp Pulse Resp BP Pulse Ox 98.0 F 77 16 149/85 H 97 04/14/20 05:43 04/14/20 05:43 04/14/20 05:43 04/14/20 05:43 04/14/20 05:43 Interpretation: Normal - General General appearance: Appears well, Alert - HEENT Head: Normocephalic, Atraumatic Eyes: Normal Pupils: PERRL - Respiratory Respiratory status: No respiratory distress Chest status: Nontender Breath sounds: Wheezing Chest palpation: Normal - Cardiovascular Rhythm: Regular Heart sounds: Normal auscultation Murmur: No - Abdominal Inspection: Normal Distension: No distension Bowel sounds: Normal Tenderness: Nontender Organomegaly: No organomegaly - Back Back: Normal, Nontender - Extremities General upper extremity: Normal inspection, Nontender, Normal color, Normal ROM, Normal temperature General lower extremity: Normal inspection, Nontender, Normal color, Normal ROM, Normal temperature, Normal weight bearing. No: Ron's sign - Neurological Neuro grossly intact: Yes Cognition: Normal Orientation: AAOx4 [place] Coma Scale Eye Opening: Spontaneous Ger Coma Scale Verbal: Oriented [place] Coma Scale Motor: Obeys Commands [place] Coma Scale Total: 15 Speech: Normal Motor strength normal: LUE, RUE, LLE, RLE Sensory: Normal - Psychological Associated symptoms: Normal affect, Normal mood - Skin Skin Temperature: Warm Skin Moisture: Dry Skin Color: Normal Course - Re-evaluation Re-evalutation: 04/14/20 08:33 Patient presents with shortness of breath and wheezing. She is wheezing here on exam. However she does not appear tachypneic or in distress. She has been t rying an inhaler at home with minimal relief. I do not see any evidence of failure. She does have ectopy on EKG. Therefore I have called and discussed the case with the terrazzo mechanic helper, Dr. Tinoco. He will follow up with the patient in the office. In addition I will treat the patient has an upper respiratory infection. 04/14/20 08:34 The patient was evaluated during a global COVID-19 pandemic and that diagnosis was suspected/considered upon their initial presentation. Their evaluation, treatment and testing was consistent with current guidelines for patients who present with complaints or symptoms and may be related to COVID-19. - Vital Signs Vital signs: Temp Pulse Resp BP Pulse Ox 98.0 F 77 16 149/85 H 94 04/14/20 05:43 04/14/20 05:43 04/14/20 05:43 04/14/20 05:43 04/14/20 06:17 - Laboratory Result Diagrams: 04/14/20 06:26 04/14/20 06:26 Laboratory results interpreted by me: 04/14/20 04/14/20 06:26 06:26 RBC 5.41 H RDW 15.1 H Eos % (Auto) 10.6 H Absolute Eos (auto) 1.0 H Glucose 119 H - Diagnostic Test Radiology reviewed: Image reviewed, Reports reviewed - EKG Interpretation by Me EKG shows normal: Sinus rhythm Rate: Normal - 99 Rhythm: NSR, PVC's [place]/QRS: No: Right axis deviation, Left axis deviation Discharge - Discharge Clinical Impression: URI (upper respiratory infection) Qualifiers: URI type: unspecified URI Qualified Code(s): J06.9 - Acute upper respiratory infection, unspecified Condition: Stable Disposition: HOME, SELF-CARE Instructions: Upper Respiratory Illness ([facility]) Additional Instructions: The terrazzo mechanic helper, Dr. Tinoco, will contact you and arrange for an evaluation in his office. Prescriptions: Sulfamethoxazole/Trimethoprim [Bactrim Ds Tablet] 1 each PO BID 7 Days #14 tablet Prednisone [Deltasone 20 mg Tablet] 3 tab PO DAILY 5 Days tablet Forms: Return to Work Referrals: OMAR TINOCO MD [ACTIVE STAFF] - Follow up in 3-5 days
[2020-04-14 08:52] VITALS: BP 125/80
--- NOTE | 2020-04-14 17:45 | EKG REPORT ---
SEVERITY:- ABNORMAL ECG - SINUS TACHYCARDIA MULTIPLE VENTRICULAR PREMATURE COMPLEXES BIATRIAL ABNORMALITIES RIGHT AXIS DEVIATION : Confirmed by: Dl Olmstead MD 14-Apr-2020 17:44:55
== END 2020-04-14 08:52 | disposition home or self-care (01) ==
LOC: ER 05:38
DX: J06.9 Acute upper respiratory infection, unspecified (principal); I49.3 Ventricular premature depolarization; R06.02 Shortness of breath; R06.2 Wheezing; Z87.891 Personal history of nicotine dependence; Z20.828 Contact with and (suspected) exposure to other viral communicable diseases
CPT/HCPCS: 36415; 71275; 80053; 83880; 84484; 85025; 93005; 93010; 94640; 99285

== ENCOUNTER 2020-04-26 17:28 | Emergency (ER) | payer OTHER ==
[2020-04-26] MEDS ORDERED: METHYLPREDNISOLONE INJ 125 MG/2 ML SDV IV ONE (18:14)
[2020-04-26] MEDS ORDERED: ALBUTEROL SULFATE 0.083% NEB 2.5 MG/3 ML AMPUL NEB ONE (18:14)
--- NOTE | 2020-04-26 18:16 | ER Document Report ---
ED Medical Screen (RME) - General Chief Complaint: Shortness Of Breath Stated Complaint: SHORT OF BREATH,COUGH Time Seen by Provider: 04/26/20 18:11 Primary Care Provider: ANDREA MCKEON NP [Primary Care Provider] - Follow up as needed Notes: HPI: 49-year-old female without an asthma history presenting for increased shortness of breath over the last 24 hours. Patient states she was seen here 2 weeks ago for wheezing and shortness of breath. Patient was given antibiotics which she did feel better on but states that she began having increasing shortness of breath again yesterday and worse today. No chest pain. PHYSICAL EXAMINATION: Audible expiratory wheezing is noted in all lung llamas. Patient is dyspneic with speaking. Pulse oximetry 96% on room air I have greeted and performed a rapid initial assessment of this patient. A comprehensive ED assessment and evaluation of the patient, analysis of test results and completion of medical decision making process will be conducted by an additional ED providers. Please note that clinical decision making for this patient was made during the 2019 pandemic of novel coronavirus which caused a significant strain on the healthcare system including at this particular facility. Criteria for admission discharge and level of care decisions as well as treatment decisions have necessarily changed TRAVEL OUTSIDE OF THE [place] IN LAST 30 DAYS: No - Related Data Allergies/Adverse Reactions: No Known Allergies Allergy (Verified 10/25/17 13:33) Past Medical History - Past Medical History Cardiac Medical History: Denies: Hx Coronary Artery Disease, Hx Heart Attack, Hx Hypertension Pulmonary Medical History: Denies: Hx Asthma, Hx Bronchitis, Hx COPD, Hx Pneumonia Neurological Medical History: Denies: Hx Cerebrovascular Accident, Hx Seizures Renal/ Medical History: Denies: Hx Peritoneal Dialysis Musculoskeltal Medical History: Denies Hx Arthritis Past Surgical History: Reports: Other - Status post ventral hernia repair just today. - Immunizations Hx Diphtheria, Pertussis, Tetanus Vaccination: Yes Physical Exam - Vital signs Vitals: Temp Pulse Resp BP Pulse Ox 98.3 F 99 20 144/79 H 96 04/26/20 17:46 04/26/20 17:46 04/26/20 17:46 04/26/20 17:46 04/26/20 17:46 Course - Vital Signs Vital signs: Temp Pulse Resp BP Pulse Ox 98.3 F 99 20 144/79 H 96 04/26/20 17:46 04/26/20 17:46 04/26/20 17:46 04/26/20 17:46 04/26/20 17:46 Doctor's Discharge - Discharge Referrals: ANDREA MCKEON, PRINCIPAL AUTOMATION ENGINEER [Primary Care Provider] - Follow up as needed
[2020-04-26 19:12] LABS: ABSOLUTE BASOPHILS # (AUTO) 0.1 10^3/uL (0.0-0.2); ABSOLUTE EOSINOPHILS # (AUTO) 1.3 10^3/uL (0.0-0.6); ABSOLUTE MONOCYTES (AUTO) 0.6 10^3/uL (0.1-1.4); ABSOLUTE NEUT (AUTO) 5.4 10^3/uL (1.7-8.2); BASOPHILS % (AUTO) 0.8 % (0-2); EOSINOPHILS % (AUTO) 12.5 % (0-6); HEMATOCRIT 42.8 % (36.0-47.0); HEMOGLOBIN 14.2 g/dL (12.0-15.5); LYMPHOCYTES % (AUTO) 28.6 % (13-45); MEAN CORPUSCULAR HEMOGLOBIN 28.1 pg (27.0-33.4); MEAN CORPUSCULAR HGB CONC 33.1 g/dL (32.0-36.0); MEAN CORPUSCULAR VOLUME 85 fl (80-97); MONOCYTES % (AUTO) 6.2 % (3-13); PLATELET COUNT 245 10^3/uL (150-450); RED BLOOD COUNT 5.04 10^6/uL (3.72-5.28); RED CELL DISTRIBUTION WIDTH 15.2 % (11.5-14.0); SEGMENTED NEUTROPHILS % (AUTO) 51.9 % (42-78); TOTAL CELLS COUNTED % (AUTO) 100 %; WHITE BLOOD COUNT 10.5 10^3/uL (4.0-10.5)
[2020-04-26 19:32] LABS: ALBUMIN 3.9 g/dL (3.5-5.0); ALKALINE PHOSPHATASE 60 U/L (38-126); ANION GAP 6 (5-19); ASPARTATE AMINO TRANSFERASE 23 U/L (14-36); BILIRUBIN,DIRECT 0.2 mg/dL (0.0-0.4); BILIRUBIN,TOTAL 0.4 mg/dL (0.2-1.3); BLOOD UREA NITROGEN 10 mg/dL (7-20); CALCIUM 9.7 mg/dL (8.4-10.2); CARBON DIOXIDE 29 mmol/L (22-30); CHLORIDE 106 mmol/L (98-107); GLUCOSE 133 mg/dL (75-110); TOTAL PROTEIN 6.9 g/dL (6.3-8.2)
--- NOTE | 2020-04-26 19:53 | RADIOLOGY REPORT (SQ) ---
EXAM DESCRIPTION: CHEST SINGLE VIEW IMAGES COMPLETED DATE/TIME: 04/26/2020 6:32 pm REASON FOR STUDY: sob COMPARISON: 04/04/2020 EXAM PARAMETERS: NUMBER OF VIEWS: One view. TECHNIQUE: Single frontal radiographic view of the chest acquired. RADIATION DOSE: NA LIMITATIONS: None. FINDINGS: LUNGS AND PLEURA: No opacities, masses or pneumothorax. No pleural effusion. MEDIASTINUM AND HILAR STRUCTURES: No masses. Contour normal. HEART AND VASCULAR STRUCTURES: Heart normal in size. Normal vasculature. BONES: No acute findings. HARDWARE: None in the chest. OTHER: No other significant finding. IMPRESSION: NO ACUTE RADIOGRAPHIC FINDING IN THE CHEST. TECHNICAL DOCUMENTATION: JOB ID: [id number] 2010 [employer]- All Rights Reserved Reading location - IP/workstation name: [email or web address]
[2020-04-26] MEDS ORDERED: MAGNESIUM SULFATE/D5W 1 GM/100 ML RTUPB IV ONE (20:45)
[2020-04-26] MEDS ORDERED: IBUPROFEN 400 MG TABLET PO ONE (20:46)
--- NOTE | 2020-04-26 22:40 | ER Document Report ---
ED General - General Chief Complaint: Shortness Of Breath Stated Complaint: SHORT OF BREATH,COUGH Time Seen by Provider: 04/26/20 18:11 Primary Care Provider: ANDREA MCKEON NP [Primary Care Provider] - Follow up as needed Notes: 49-year-old female with prior smoking history presents with approximately 3 weeks of shortness of breath, wheezing, cough sometimes productive of scant clear sputum. Patient states she was seen at the onset of her symptoms approximately 3 weeks ago and was started on albuterol which she has been taking frequently approximately every 4 hours. Also had course of antibiotics which she complied with and felt like symptoms were improved until it worsened again a few days ago. Patient is not sure if she has been on steroids. Patient was not previously diagnosed with COPD although has a smoking history. Patient says that symptoms feel better when she takes albuterol but that improvement does not last. Patient denies any fever, chest pain, cardiac history, hypertension, hyp erlipidemia, diabetes, lower extremity edema, myalgia, abdominal pain, nausea vomiting, diarrhea TRAVEL OUTSIDE OF THE [place] IN LAST 30 DAYS: No - Related Data Allergies/Adverse Reactions: No Known Allergies Allergy (Verified 10/25/17 13:33) Past Medical History - General Information source: Patient, [facility] Records - Social History Smoking Status: Former Smoker Family History: Reviewed & Not Pertinent - Past Medical History Cardiac Medical History: Denies: Hx Coronary Artery Disease, Hx Heart Attack, Hx Hypertension Pulmonary Medical History: Denies: Hx Asthma, Hx Bronchitis, Hx COPD, Hx Pneumonia Neurological Medical History: Denies: Hx Cerebrovascular Accident, Hx Seizures Renal/ Medical History: Denies: Hx Peritoneal Dialysis Musculoskeletal Medical History: Denies Hx Arthritis Past Surgical History: Reports: Other - Status post ventral hernia repair just today. - Immunizations Hx Diphtheria, Pertussis, Tetanus Vaccination: Yes Review of Systems - Review of Systems Notes: REVIEW OF SYSTEMS: CONSTITUTIONAL : Denies fever, chills, or sweats. EENT: Denies recent cold/sinus symptoms, denies throat pain CARDIOVASCULAR: Denies chest pain, LISA RESPIRATORY: + cough, + shortness of breath. GASTROINTESTINAL: Denies abdominal pain, nausea/vomiting. GENITOURINARY: Denies difficulty urinating, painful urination. MUSCULOSKELETAL: Denies neck pain, back pain. SKIN: Denies rash or skin lesions. HEMATOLOGIC : Denies easy bruising or bleeding. LYMPHATIC: Denies swollen, enlarged glands. NEUROLOGICAL: Denies headache, denies change in gait. PSYCHIATRIC: Denies anxiety or stress or depression. Physical Exam - Vital signs Vitals: Temp Pulse Resp BP Pulse Ox 98.3 F 99 20 144/79 H 96 04/26/20 17:46 04/26/20 17:46 04/26/20 17:46 04/26/20 17:46 04/26/20 17:46 - Notes Notes: PHYSICAL EXAMINATION: GENERAL: Well-appearing, well-nourished, smiling talkative pleasant middle-aged woman without any signs of distress HEAD: Atraumatic, normocephalic. EYES: Pupils equal round and appropriate constriction, sclera anicteric, conjunctiva are normal. ENT: nares patent, moist mucous membranes. NECK: Normal range of motion, supple without lymphadenopathy LUNGS: Diffuse prominent expiratory wheezing bilaterally with good air movement, speaking in full sentences, no accessory muscle use, borderline HEART: Regular rate and rhythm without murmurs ABDOMEN: Soft, nontender, no guarding, no masses, no CVAT EXTREMITIES: Normal range of motion, no pitting or edema. No cyanosis. NEUROLOGICAL: Awake, alert, conversing appropriately, moves all extremities spo ntaneously. PSYCH: Normal mood, normal affect. SKIN: Warm, Dry, normal turgor, no rashes or lesions noted. Course - Re-evaluation Re-evalutation: 04/26/20 22:54 Patient with significant wheezing but good air movement, no signs of respiratory distress, normal vital signs. Current symptoms likely present new onset COPD possibly precipitated by viral infection including Covid versus influenza. Rule out pneumonia, no indication to give antibiotics for COPD at this time given recent antibiotics and stable scant sputum. Patient significantly improved after nebs, will observe in ED and give steroids time to take effect and r eevaluate. Will make sure that patient is able to walk in ED without significant dyspnea or desaturation. Likely discharge with close PCP follow-up, burst dose of prednisone, and return precautions. No signs of cardiac etiology and exam highly consistent with obstructive process. 04/27/20 00:25 Patient feels significantly improved after steroids and nebs, Covid test negative, patient maintained normal saturations on room air and also was able to walk through the ED without any significant dyspnea and maintain saturations in the mid 90s. Patient expresses relief that her symptoms subsequently improved and is very thankful for her care. I spent time with patient explaining the likely new diagnosis of COPD and the physiology and patient demonstrated understanding and says she will follow-up closely with her primary doctor. Patient given extensive return to ED precautions which she demonstrated understanding of. Patient ready for discharge. - Vital Signs Vital signs: Temp Pulse Resp BP Pulse Ox 98.3 F 99 15 134/77 H 94 04/26/20 17:46 04/26/20 17:46 04/26/20 23:30 04/26/20 23:30 04/26/20 23:30 - Laboratory Results Result Diagrams: 04/26/20 18:45 04/26/20 18:45 Laboratory Results Interpreted: 04/26/20 04/26/20 18:45 18:45 RDW 15.2 H Eos % (Auto) 12.5 H Absolute Eos (auto) 1.3 H Glucose 133 H Critical Laboratory Results Reviewed: No Critical Results - Radiology Results Critical Radiology Results Reviewed: No Critical Results - EKG Interpretation by Me Additional EKG results interpreted by me: 04/27/20 00:27 Heart rate 99, normal sinus rhythm, no significant ST elevations or depressions, PVCs Discharge - Discharge Clinical Impression: Shortness of breath Obstructive airway disease Qualifiers: COPD type: unspecified COPD Qualified Code(s): J44.9 - Chronic obstructive pulmonary disease, unspecified Disposition: HOME, SELF-CARE Additional Instructions: Your symptoms may be due to a new onset of COPD (chronic obstructive pulmonary disease). This is a disease usually caused by smoking that prevents your lungs from properly being able to get air out which leads to shortness of breath. Is important that you follow-up with your primary doctor regarding your current symptoms within the next few days. Take all prednisone as prescribed. Use your albuterol every 4 hours over the next 4 days and then every 4 hours as needed after that. If at any point you have any worsening shortness of breath, chest pain, dizziness, fainting, fever, leg swelling, or any other worsening or alarming symptoms return to the emergency department immediately. Prescriptions: Prednisone [Deltasone 20 mg Tablet] 20 mg PO QAM 4 Days #12 tablet Albuterol Sulfate [Proair HFA Inhalation Aerosol 8.5 gm MDI] 200 puff IH Q4H 4 Days #1 [id number] Referrals: ANDREA MCKEON, CARDIOLOGY CLINICAL NURSE SPECIALIST [Primary Care Provider] - Follow up as needed
[2020-04-27 00:28] VITALS: BP 128/83
--- NOTE | 2020-04-27 01:59 | EKG REPORT ---
SEVERITY:- ABNORMAL ECG - SINUS TACHYCARDIA MULTIPLE VENTRICULAR PREMATURE COMPLEXES BIATRIAL ABNORMALITIES CONSIDER RIGHT VENTRICULAR HYPERTROPHY : Confirmed by: Leda Jenkins MD 27-Apr-2020 01:58:40
== END 2020-04-27 00:31 | disposition home or self-care (01) ==
LOC: ER 17:28
DX: J44.9 Chronic obstructive pulmonary disease, unspecified (principal); R06.02 Shortness of breath; R06.2 Wheezing; R05 Cough; Z79.899 Other long term (current) drug therapy; Z87.891 Personal history of nicotine dependence; Z20.828 Contact with and (suspected) exposure to other viral communicable diseases
CPT/HCPCS: 93005; 94640; 99285; 96375; 96365; 36415; 83735; 85025; 0202U ×23; 80053; 71045; 93010; J3490; J2930; J3475; J7613

== ENCOUNTER 2020-05-15 09:08 | Emergency (ER) | payer OTHER ==
[2020-05-15] MEDS ORDERED: IPRATROPIUM/ALBUTEROL 0.5-2.5 MG/3 ML AMPUL NEB ONE ×2 (09:52→10:51)
[2020-05-15] MEDS ORDERED: PREDNISONE 20 MG TABLET PO ONE (09:52)
--- NOTE | 2020-05-15 09:54 | ER Document Report ---
ED Respiratory Problem - General Chief Complaint: Cough Stated Complaint: COUGH Time Seen by Provider: 05/15/20 09:39 Primary Care Provider: ANDREA MCKEON NP [Primary Care Provider] - Follow up as needed Notes: Patient is a 49-year-old female who comes emergency department for chief complaint of shortness of breath, cough, wheezing. She states that she worsened last night after feeling significantly better for the past few days. She states that she was treated approximately 2 weeks ago for the same problem, she had a negative COVID-19 test at that time. She denies fevers, sick contacts, congestion, sore throat, sinus pain, or productive cough. She denies chest pain. She denies any other complaints. She is a former smoker, is not diagnosed with asthma or COPD. She takes no medications other than as needed albuterol inhaler. She denies medical history otherwise. TRAVEL OUTSIDE OF THE [place] IN LAST 30 DAYS: No - Related Data Allergies/Adverse Reactions: No Known Allergies Allergy (Verified 05/15/20 10:20) Past Medical History - General Information source: Patient - Social History Smoking Status: Former Smoker Frequency of alcohol use: None Drug Abuse: None Lives with: Family Family History: Reviewed & Not Pertinent - Past Medical History Cardiac Medical History: Denies: Hx Coronary Artery Disease, Hx Heart Attack, Hx Hypertension Pulmonary Medical History: Reports: Hx Bronchitis Denies: Hx COPD, Hx Pneumonia Neurological Medical History: Denies: Hx Cerebrovascular Accident, Hx Seizures Renal/ Medical History: Denies: Hx Peritoneal Dialysis Musculoskeletal Medical History: Denies Hx Arthritis Past Surgical History: Reports: Hx Herniorrhaphy - Ventral - Immunizations Hx Diphtheria, Pertussis, Tetanus Vaccination: Yes Review of Systems - Review of Systems Constitutional: No symptoms reported EENT: No symptoms reported Cardiovascular: No symptoms reported Respiratory: See HPI Gastrointestinal: No symptoms reported Genitourinary: No symptoms reported Female Genitourinary: No symptoms reported Musculoskeletal: No symptoms reported Skin: No symptoms reported Hematologic/Lymphatic: No symptoms reported Neurological/Psychological: No symptoms reported Physical Exam - Vital signs Vitals: Temp Pulse Resp BP Pulse Ox 98.0 F 93 18 147/87 H 96 05/15/20 09:13 05/15/20 09:13 05/15/20 09:13 05/15/20 09:13 01/03/21 09:13 - Notes Notes: GENERAL: Alert, interacts well. Talkative and well-appearing HEAD: Normocephalic, atraumatic. EYES: Pupils equal, round, and reactive to light. Extraocular movements intact. ENT: Oral mucosa moist, tongue midline. Oropharynx unremarkable. Airway patent. Nares patent, sinuses non-tender, ear canals unremarkable, TM's intact. NECK: Full range of motion. Supple. Trachea midline. No lymphadenopathy. LUNGS: Expiratory wheezes throughout but no rales or rhonchi. No respiratory distress. Patient speaks in full sentences. HEART: Regular rate and rhythm. No murmur ABDOMEN: Soft, non-tender. Non-distended. EXTREMITIES: Moves all 4 extremities spontaneously. No edema, normal radial and dorsalis pedis pulses bilaterally. No cyanosis. BACK: no cervical, thoracic, lumbar midline tenderness. No saddle anesthesia, normal distal neurovascular exam. Moves all extremities in full range of motion. NEUROLOGICAL: Alert and oriented x3. Normal speech. Cranial nerves II through XII grossly intact. Strength 5/5 in all extremities. PSYCH: Normal affect, normal mood. SKIN: Warm, dry, normal turgor. No rashes or lesions noted. Course - Re-evaluation Re-evalutation: Patient with wheezing on exam but no coughing, chest pain, shortness of breath, fever. I offered COVID-19 testing but she declined, she has had recent testing, no recent exposures, no development of sick symptoms or classic Covid symptoms. She has had return of wheezing but this is frequent with her history. Patient was provided with prednisone and duo nebs, on repeat evaluation wheezing resolved and patient states she feels much better. Patient states appreciation. I discussed treatment, close follow-up, primary care follow-up will be performed on Saturday per patient and she states she understands return precautions. Stable and well-appearing at time of discharge. - Vital Signs Vital signs: Temp Pulse Resp BP Pulse Ox 98.0 F 92 18 136/80 H 96 05/15/20 09:13 05/15/20 11:25 05/15/20 11:25 05/15/20 11:25 05/15/20 11:25 - Laboratory Results Critical Laboratory Results Reviewed: No Critical Results - Radiology Results Critical Radiology Results Reviewed: No Critical Results Discharge - Discharge Clinical Impression: Wheezing, Cough Condition: Stable Disposition: HOME, SELF-CARE Additional Instructions: Your chest x-ray does not show pneumonia. Your exam is most suggestive of bronchitis, continue your albuterol inhaler with your spacer, take the prednisone to completion. Because of your recent repeated episodes of wheezing discuss with your primary care provider different treatment options and testing (you may need a nebulizer machine, different inhalers, etc.). Return if you worsen including fever, difficulty breathing, chest pain, or any other concerning or worsening symptoms. Prescriptions: Prednisone [Deltasone 20 mg Tablet] 3 tab PO DAILY 5 Days #15 tablet Forms: Return to Work Referrals: ANDREA MCKEON, MANAGED CARE COORDINATOR [Primary Care Provider] - Follow up as needed
--- NOTE | 2020-05-15 09:56 | RADIOLOGY REPORT (SQ) ---
EXAM DESCRIPTION: CHEST SINGLE VIEW IMAGES COMPLETED DATE/TIME: 05/15/2020 9:47 am REASON FOR STUDY: cough COMPARISON: None. NUMBER OF VIEWS: One view. TECHNIQUE: Single frontal radiographic view of the chest acquired. LIMITATIONS: None. FINDINGS: LUNGS AND PLEURA: No opacities, masses or pneumothorax. No pleural effusion. MEDIASTINUM AND HILAR STRUCTURES: No masses. Contour normal. HEART AND VASCULAR STRUCTURES: Heart normal in size. Normal vasculature. BONES: No acute findings. HARDWARE: None in the chest. OTHER: No other significant finding. IMPRESSION: NO SIGNIFICANT RADIOGRAPHIC FINDING IN THE CHEST. TECHNICAL DOCUMENTATION: JOB ID: [id number] 2010 [employer]- All Rights Reserved Reading location - IP/workstation name: [email or web address]
[2020-05-15 11:26] VITALS: BP 136/80
== END 2020-05-15 11:25 | disposition home or self-care (01) ==
LOC: ER 09:08
DX: R05 Cough (principal); R06.2 Wheezing; R06.02 Shortness of breath
CPT/HCPCS: 94640 ×2; 99284; 71045; J7512

== ENCOUNTER 2020-05-30 11:43 | Emergency (ER) | payer OTHER ==
[2020-05-30] MEDS ORDERED: DEXAMETHASONE SOD PHOSPHATE INJ 4 MG/1 ML VIAL IV ONE (12:11)
[2020-05-30] MEDS ORDERED: IPRATROPIUM/ALBUTEROL 0.5-2.5 MG/3 ML AMPUL NEB ONE (12:11)
--- NOTE | 2020-05-30 12:15 | ER Document Report ---
ED Respiratory Problem - General Stated Complaint: WHEEZING COUGH Time Seen by Provider: 05/30/20 12:00 Primary Care Provider: ELSY POWERS MD [ACTIVE PROVISIONAL STAFF] - Follow up as needed ANDERA MCKEON NP [Primary Care Provider] - Follow up as needed Notes: CHIEF COMPLAINT: Shortness of breath for 4 to 5 days HPI: 49-year-old female with multiple prior visits to the emergency department for shortness of breath presenting again for shortness of breath. Symptoms this time over 4 to 5 days no fever. Patient states that she did follow-up with her PCP on Saturday by telehealth was prescribed an Advair inhaler that did not help. Patient states she has had 2 Covid test previously they were both negative. Patient states she will go on medication for the coughing and wheezing and get better and then once the medication and she will get worse again. She denies asthma history ROS: See HPI - all other systems were reviewed and are otherwise negative Constitutional: no fever Eyes: no drainage, no blurred vision ENT: no runny nose, no sore throat Cardiovascular: no chest pain Resp: + SOB, + cough GI: no vomiting, no diarrhea, no abdominal pain : no dysuria Integumentary: no rash Allergy: no hives Musculoskeletal: no extremity pain or swelling Neurological: no numbness/tingling, no weakness MEDICATIONS: I agree with the patient medications as charted by the RN. ALLERGIES: I agree with the allergies as charted by the RN. PAST MEDICAL HISTORY/PAST SURGICAL HISTORY: Reviewed and agree as charted by RN. SOCIAL HISTORY: Reviewed and agree as charted by RN. FAMILY HISTORY: No significant familial comorbid conditions directly related to patient complaint EXAM: Reviewed vital signs as charted by RN. CONSTITUTIONAL: Alert and oriented and responds appropriately to questions. Well-appearing; well-nourished HEAD: Normocephalic; atraumatic EYES: PERRL; Conjunctivae clear, sclerae non-icteric ENT: normal nose; no rhinorrhea; moist mucous membranes; pharynx without lesions noted, no uvula edema or deviation, no tonsillar hypertrophy, phonation normal NECK: Supple without meningismus; non-tender; no cervical lymphadenopathy, no masses CARD: RRR; no murmurs, no clicks, no rubs, no gallops; symmetric distal pulses RESP: Normal chest excursion without splinting. Positive mild tachypnea; breath sounds noted to have very fine expiratory wheezing in all lung llamas, no rhonchi, no rales, pulse oximetry 96% on room air not hypoxic. Spastic cough is noted ABD/GI: Normal bowel sounds; non-distended; soft, non-tender, no rebound, no guarding; no palpable organomegaly or masses. BACK: The back appears normal and is non-tender to palpation, there is no CVA tenderness EXT: Normal ROM in all joints; non-tender to palpation; no cyanosis, no effusions, no edema SKIN: Normal color for age and race; warm; dry; good turgor; no acute lesions noted NEURO: Moves all extremities equally; Motor and sensory function intact PSYCH: The patient's mood and manner are appropriate. Grooming and personal h ygiene are appropriate. MDM: History is obtained from the patient and the records. 49-year-old female with no asthma history presenting again for wheezing and shortness of breath. She has been seen for 5 times in the last 5 or 6 weeks for similar complaints. Has had negative CTA, negative chest x-rays, negative cardiac work-up twice. Will obtain baseline lab work given her age and presentation will give continuous nebulizer treatment, IV steroids, reassess. If we are able to improve patient's breathing status would anticipate discharge again on steroids but will likely need referral to pulmonology for further work-up The patient was evaluated during the global COVID-19 pandemic and that diagnosis was suspected/considered upon their initial presentation. Their evaluation, treatment and testing was consistent with current guidelines for patients who present with complaints or symptoms that may be related to COVID-19 TRAVEL OUTSIDE OF THE [place] IN LAST 30 DAYS: No - Related Data Allergies/Adverse Reactions: No Known Allergies Allergy (Verified 05/30/20 12:29) Past Medical History - Social History Smoking Status: Unknown if Ever Smoked Family History: Reviewed & Not Pertinent - Past Medical History Cardiac Medical History: Denies: Hx Coronary Artery Disease, Hx Heart Attack, Hx Hypertension Pulmonary Medical History: Reports: Hx Bronchitis Denies: Hx Asthma, Hx COPD, Hx Pneumonia Neurological Medical History: Denies: Hx Cerebrovascular Accident, Hx Seizures Renal/ Medical History: Denies: Hx Peritoneal Dialysis Musculoskeletal Medical History: Denies Hx Arthritis Past Surgical History: Reports: Hx Herniorrhaphy - Ventral, Other - Status post ventral hernia repair just today. - Immunizations Hx Diphtheria, Pertussis, Tetanus Vaccination: Yes Physical Exam - Vital signs Vitals: Temp 98.1 F 05/30/20 11:44 Course - Re-evaluation Re-evalutation: 05/30/20 13:17 Patient normal sinus rhythm with a ventricular rate of 95, DE 144, QT 356, QTc 448. Incomplete EKG as V6 does not have order picker. Quadrigeminy is noted. interpreted by Dr. Peres attending 05/30/20 14:23 Patient is feeling better after her breathing treatments and steroids. She likely has bronchospasm. Cardiac labs are again negative. Will discharge home to continue on steroids, she has an albuterol MDI. Follow-up pulmonology - Vital Signs Vital signs: Temp Pulse Resp BP Pulse Ox 98.0 F 51 L 22 H 157/86 H 96 05/30/20 12:12 05/30/20 12:12 05/30/20 12:12 05/30/20 12:12 05/30/20 12:12 - Laboratory Results Result Diagrams: 05/30/20 12:28 05/30/20 12:28 Laboratory Results Interpreted: 05/30/20 12:28 RDW 15.1 H Eos % (Auto) 7.6 H Absolute Eos (auto) 0.7 H Critical Laboratory Results Reviewed: No Critical Results - Radiology Results Critical Radiology Results Reviewed: No Critical Results Discharge - Discharge Clinical Impression: Acute bronchospasm Dyspnea Qualifiers: Dyspnea type: shortness of breath Qualified Code(s): R06.02 - Shortness of breath; R06.00 - Dyspnea, unspecified; R06.01 - Orthopnea Condition: Stable Disposition: HOME, SELF-CARE Additional Instructions: Continue the albuterol inhaler 2 puffs every 4 hours for shortness of breath. Continue the Decadron as prescribed. Follow-up with pulmonology for further ev aluation and treatment call for appointment return for worsened shortness of breath Prescriptions: Dexamethasone [Decadron 4 Mg Tablet] 4 mg PO DAILY #7 tablet Referrals: ANDREA MCKEON NP [Primary Care Provider] - Follow up as needed ELSY POWERS MD [ACTIVE PROVISIONAL STAFF] - Follow up as needed
--- NOTE | 2020-05-30 12:52 | RADIOLOGY REPORT (SQ) ---
EXAM DESCRIPTION: CHEST SINGLE VIEW IMAGES COMPLETED DATE/TIME: 05/30/2020 12:44 pm REASON FOR STUDY: cough sob COMPARISON: 05/15/2020 EXAM PARAMETERS: NUMBER OF VIEWS: One view. TECHNIQUE: Single frontal radiographic view of the chest acquired. RADIATION DOSE: NA LIMITATIONS: None. FINDINGS: LUNGS AND PLEURA: No opacities, masses or pneumothorax. No pleural effusion. MEDIASTINUM AND HILAR STRUCTURES: No masses. Contour normal. HEART AND VASCULAR STRUCTURES: Heart normal in size. Normal vasculature. BONES: No acute findings. HARDWARE: None in the chest. OTHER: No other significant finding. IMPRESSION: 1. No significant interval changes since the prior study dated 05/15/2020. No acute find ings. TECHNICAL DOCUMENTATION: JOB ID: [id number] 2010 [employer]- All Rights Reserved Reading location - IP/workstation name: [email or web address]
[2020-05-30 12:57] LABS: ABSOLUTE BASOPHILS # (AUTO) 0.2 10^3/uL (0.0-0.2); ABSOLUTE EOSINOPHILS # (AUTO) 0.7 10^3/uL (0.0-0.6); ABSOLUTE LYMPHOCYTES (AUTO) 2.2 10^3/uL (0.5-4.7); ABSOLUTE MONOCYTES (AUTO) 0.7 10^3/uL (0.1-1.4); ABSOLUTE NEUT (AUTO) 5.1 10^3/uL (1.7-8.2); EOSINOPHILS % (AUTO) 7.6 % (0-6); HEMATOCRIT 43.6 % (36.0-47.0); HEMOGLOBIN 14.8 g/dL (12.0-15.5); LYMPHOCYTES % (AUTO) 25.1 % (13-45); MEAN CORPUSCULAR HEMOGLOBIN 28.1 pg (27.0-33.4); MEAN CORPUSCULAR HGB CONC 33.9 g/dL (32.0-36.0); MEAN CORPUSCULAR VOLUME 83 fl (80-97); MONOCYTES % (AUTO) 7.6 % (3-13); PLATELET COUNT 232 10^3/uL (150-450); RED BLOOD COUNT 5.26 10^6/uL (3.72-5.28); RED CELL DISTRIBUTION WIDTH 15.1 % (11.5-14.0); SEGMENTED NEUTROPHILS % (AUTO) 57.7 % (42-78); TOTAL CELLS COUNTED % (AUTO) 100 %; WHITE BLOOD COUNT 8.8 10^3/uL (4.0-10.5)
[2020-05-30 13:13] LABS: ALBUMIN 4.3 g/dL (3.5-5.0); ALKALINE PHOSPHATASE 58 U/L (38-126); ANION GAP 6 (5-19); ASPARTATE AMINO TRANSFERASE 30 U/L (14-36); BILIRUBIN,DIRECT 0.3 mg/dL (0.0-0.4); BILIRUBIN,TOTAL 0.7 mg/dL (0.2-1.3); BLOOD UREA NITROGEN 10 mg/dL (7-20); CARBON DIOXIDE 26 mmol/L (22-30); CHLORIDE 106 mmol/L (98-107); GLUCOSE 103 mg/dL (75-110); POTASSIUM 4.5 mmol/L (3.6-5.0); TOTAL PROTEIN 7.6 g/dL (6.3-8.2)
--- NOTE | 2020-05-30 13:21 | EKG REPORT ---
SEVERITY:- ABNORMAL ECG - INCOMPLETE ANALYSIS DUE TO MISSING DATA IN PRECORDIAL LEAD(S) SINUS TACHYCARDIA MULTIPLE VENTRICULAR PREMATURE COMPLEXES , QUADRIGEMINY. OSMANI, CONSIDER BIATRIAL ABNORMALITIES : Confirmed by: Amrit Haley MD 30-May-2020 13:20:22
[2020-05-30 14:41] VITALS: BP 151/89
--- NOTE | 2020-05-31 12:31 | EKG REPORT ---
SEVERITY:- ABNORMAL ECG - SINUS RHYTHM MULTIPLE VENTRICULAR PREMATURE COMPLEXES BI ATRIAL ABNORMALITY : Confirmed by: Amrit Haley MD 31-May-2020 12:30:48
== END 2020-05-30 14:41 | disposition home or self-care (01) ==
LOC: ER 11:43
DX: J98.01 Acute bronchospasm (principal); R06.02 Shortness of breath; R06.2 Wheezing; R06.01 Orthopnea; Z20.822 Contact with and (suspected) exposure to COVID-19
CPT/HCPCS: 93005; 94640; 99285; 96374; 36415; 83735; 85025; 80053; 84484; 71045; 93010; J1100